=== PATIENT | male | born 1950 | race Caucasian/White ===

== ENCOUNTER 2017-02-07 16:30 | Emergency (ER) | payer OTHER ==
[~2017-02-07] VITALS: Ht 172.7 cm; Wt 77.1 kg
[~2017-02-07 16:30] MED LIST: ASPIRIN325 PO; COZAAR 50 MG TA50 M2 PO; NORCO 5-325 TA1 EACH PO; SIMVASTATIN40 MG PO
[2017-02-07] MEDS ORDERED: EPIPEN 2-P0.3 MG/0.3 IM (18:51)
[2017-02-07 18:55] VITALS: BP 152/89
== END 2017-02-07 19:00 | disposition home or self-care (01) ==
LOC: ER 16:30
DX: T63.441A Toxic effect of venom of bees, accidental (unintentional), initial encounter (principal); S60.562A Insect bite (nonvenomous) of left hand, initial encounter; Z87.442 Personal history of urinary calculi; Y92.89 Other specified places as the place of occurrence of the external cause

== ENCOUNTER → 2018-06-19 | Outpatient (CLI) | payer OTHER ==
[~2018-06-19] MED LIST changes: +EPIPEN 2-P0.3 MG/0.3 IM
== END ==
LOC: MRI 07:12
DX: I67.89 Other cerebrovascular disease (principal)